=== PATIENT | male | born 1975 | race Caucasian/White ===

== ENCOUNTER 2023-06-25 19:13 | Emergency (ER) | payer OTHER, SELFPAY ==
[2023-06-25] VITALS (40 sets, daily range): BP systolic 179–220; BP diastolic 92–146; PULSE 88–153; TEMP 36.9; O2SAT 80–100; BMI 17.2
--- NOTE | 2023-06-25 19:25 | CT_ITS ---
The [address] [address] Patient Name: DONNA SHARMA MRN: [id number] date: 1975 Sex: M Assigned Patient Location: ER Current Patient Location: Accession/Order Number: [id number] Exam Date: 06/25/2023 20:05 Report Date: 06/25/2023 20:27 At the request of: MAYKEL MARKER Procedure: CT head/brain wo con EXAM: CT scan of the head without contrast. Dose reduction technique used: Automated exposure control and/or adjustment of the mA and/or kV according to patient size and/or use of iterative reconstruction technique. REASON FOR EXAM: new onset seizure COMPARISON: None FINDINGS: No intracranial hemorrhage, mass effect, midline shift, fractures or evidence of acute ischemic infarct. No hydrocephalus. Small region of old infarct or encephalomalacia in the posterior right frontal lobe. Paranasal sinuses and mastoid air cells are clear. Remainder unremarkable. CT/CT head/brain wo con IMPRESSION: No acute intracranial abnormalities. Electronically authenticated by: ISHA ARDON Date: 06/25/2023 20:27
--- NOTE | 2023-06-25 19:30 | XR_ITS ---
The [address] [address] Patient Name: DONNA SHARMA MRN: [id number] date: 1975 Sex: M Assigned Patient Location: ER Current Patient Location: ER Accession/Order Number: [id number] Exam Date: 06/25/2023 20:00 Report Date: 06/25/2023 20:21 At the request of: MAYKEL MARKER Procedure: XR chest 1V Exam: Radiographs: XR chest 1V Reason for exam: seizure Comparison: None XR/XR chest 1V IMPRESSION: Small amount of atelectasis, infiltrate or scarring in the medial right lower lung. Right upper lung calcified granuloma. Remainder of the chest is unremarkable. Electronically authenticated by: ISHA ARDON Date: 06/25/2023 20:21
--- NOTE | 2023-06-25 19:31 | ED_ITS ---
HPI - Seizure General Chief Complaint: Seizure Stated Complaint: seizure Time Seen by Provider: 06/25/23 19:18 Source: patient Mode of arrival: ambulance Limitations: no limitations History of Present Illness HPI Narrative: This 48-year-old male was transferred from [facility] for evaluation after he allegedly had a seizure for approximately 5 seconds in which he was staring. There was He is mostly edentulous and did not bite his tongue. History is somewhat limited because the patient does not have good recall of recent events. He states he was transferred to [facility] earlier today ROM a [facility] emergency Department. He was formerly in the hospital near [facility] where he is from. The patient does not recall what happened but woke up intubated and was taken off of the ventilator. He does not have a history of seizure disorder. He has no focal weakness numbness or tingling. He is alert and oriented. He states that he was sent to [facility] earlier today without his albuterol inhaler or his blood pressure medication. He also supposed to be on potassium for hypokalemia. The patient does not have a history of alcohol use or dependence. He states he is in recovery for heroin addiction and has not used heroin for 14 days. MD complaint: Reports seizure and possible seizure Related Data Home Medications ?Medication ?Instructions ?Recorded ?Confirmed albuterol sulfate 90 mcg/actuation 2 puff inhalation Q4H 06/25/23 06/25/23 aerosol inhaler amlodipine 10 mg tablet 10 mg PO DAILY 06/25/23 06/25/23 hydrochlorothiazide 25 mg tablet 25 mg PO DAILY 06/25/23 06/25/23 metoprolol tartrate 100 mg tablet 100 mg PO DAILY 06/25/23 06/25/23 Allergies Allergy/AdvReac Type Severity Reaction Status Date / Time No Known Drug Allergies Allergy Verified 06/25/23 19:25 Review of Systems ROS Status of ROS 10 or more systems reviewed and unremark able except as noted in history and below Exam Narrative Exam Narrative: Nurses note and vital signs reviewed, Patient is afebrile with a normal respiratory rate, pulse is elevated at 93 and blood pressure is elevated at 218/120, he is not hypoxic a pulse ox of 97 percent on room air General: Thin nontoxic male resting currently on the stretcher, GCS 15, no respiratory distress, patient does not appear to be confused or postictal Skin: Warm, dry, no pallor noted. There is no rash noted. Head: Normocephalic, atraumatic Eye: Normal conjunctiva, no drainage, EOMI. PERRL. Vision is grossly intact, Ears, Nose, Mouth, and Throat: oral mucosa is moist.Patient is partially edentulous, no tongue contusion or laceration noted, no oral bleeding Cardiovascular: Regular Rate and Rhythm S1S2, No murmurs rubs or gallops appreciated, pulses are brisk and equal bilaterally Respiratory: Patient is in no distress, no accessory muscle use, Lungs are coarse with scattered rhonchi, no rales or wheezing appreciated Back: non-tender, no CVA tenderness bilaterally to percussion. GI: Normal bowel sounds, no tenderness to palpation, no masses appreciated. No rebound, guarding, or rigidity noted. Musculoskeletal: The patient has no evidence of calf tenderness, no pitting edema, symmetrical pulses noted bilaterally Neurological: A&O x4, normal speech, [employer] strength is intact bilaterally, upper and lower external he strength and sensation is intact, cognition is intact, no facial droop noted. GCS 15, NIH stroke scale is 0 Psychiatric: Cooperative, friendly Constitutional Vital Signs, click to edit/add: Last Vital Signs Temp 98.4 F 06/25/23 19:14 Pulse 98 H 06/25/23 23:10 Resp 18 06/25/23 22:26 BP 179/102 H 06/25/23 23:00 Pulse Ox 99 06/25/23 23:10 O2 Del Method Room Air 06/25/23 22:26 Course Vital Signs Vital signs: Vital Signs Temperature 98.4 F 06/25/23 19:14 Pulse Rate 93 H 06/25/23 19:14 Respiratory Rate 18 06/25/23 19:14 Blood Pressure 217/105 H 06/25/23 19:14 Pulse Oximetry 97 06/25/23 19:14 Oxygen Delivery Method Room Air 06/25/23 19:14 Temperature 98.4 F 06/25/23 19:14 Pulse Rate 98 H 06/25/23 23:10 Respiratory Rate 18 06/25/23 22:26 Blood Pressure 179/102 H 06/25/23 23:00 Pulse Oximetry 99 06/25/23 23:10 Oxygen Delivery Method Room Air 04/10/24 22:26 MDM - Seizure MDM Narrative Medical decision making narrative: This 48-year-old male with a history of substance abuse who has recently been admitted to the hospital and has had several seizures was transferred from [facility] after he was noted to have an elevated blood pressure and an episode of staring which they were concerned was a seizure. The patient was not incontinent of urine, did not bite his tongue and upon arrival does not appear to be postictal. Patient states that when he was sent to the recovery center today he was not given his medications including his blood pressure medication, albuterol or potassium. He did have markedly elevated blood pressure upon arrival. Patient was awake alert oriented with a normal neuro exam. EKG was ordered and is a sinus rhythm with biatrial enlargement and nonspecific ST changes. An IV was placed and he was medicated with IV fluids, he was given albuterol MDI and 10mg IV hydralazine. Symptoms improved his blood pressure somewhat but not stay in [place] and he was given 10 mg of oral Norvasc.His blood pressure continued to decrease but was still elevated was given an additional 10 mg of IV hydralazine with clinical improvement. CT scan of the brain was negative for acute findings. Cardiac workup was ordered and labs are reviewed. He has an elevated white count of 15.6 with no sign of infection.. He recently was intubated and a chest x-ray was ordered the does not show any sign of acute pneumonia. He has normal troponin. Normal lactic acid. Electrolytes are normal with the exception of potassium which is minimally low at 3.3. CT scan of the brain was reviewed by radiology and is negative for acute findings. Blood pressure has come down into the 170s and 180s. He has remained alert and neurologically stable in the emergency department with no recurrent seizure like activity. He has been on the phone with his friends and family. We did corroborate his story with his sister. Vital signs of been stable. At this time he will be discharged back to the recovery center with prescriptions for Norvasc, albuterol and potassium The [address] [address] XRay Report Signed Patient: DONNA SHARMA MR#: [id number] : 1975 Acct:[id number] Age/Sex: 48 / M ADM Date: 06/25/23 Loc: ER Attending Dr: Ordering Physician: Nataliia Main Date of Service: 06/25/23 Procedure(s): XR chest 1V Accession Number(s): [id number] cc: Nataliia Main; Physician,Non-Staff Fina~ The [place] [id number] Patient Name: DONNA SHARMA MRN: [id number] date: 1975 Sex: M Assigned Patient Location: ER Current Patient Location: ER Accession/Order Number: [id number] Exam Date: 06/25/2023 20:00 Report Date: 06/25/2023 20:21 At the request of: NATALIIA MARKER Procedure: XR chest 1V Exam: Radiographs: XR chest 1V Reason for exam: seizure Comparison: None XR/XR chest 1V IMPRESSION: Small amount of atelectasis, infiltrate or scarring in the medial right lower lung. Right upper lung calcified granuloma. Remainder of the chest is unremarkable. Electronically authenticated by: ISHA ARDON Date: 06/25/2023 20:21 Medical Records Medical records narrative: [place] [address] XRay Report Signed Patient: DONNA SHARMA MR#: [id number] : 1975 Acct:[id number] Age/Sex: 48 / M ADM Date: 06/25/23 Loc: ER Attending Dr: Ordering Physician: Nataliia Main Date of Service: 06/25/23 Procedure(s): XR chest 1V Accession Number(s): [id number] cc: Nataliia Main; Physician,Non-Staff MShaniqua~ The [place] [id number] Patient Name: DONNA SHARMA MRN: [id number] date: 1975 Sex: M Assigned Patient Location: ER Current Patient Location: ER Accession/Order Number: [id number] Exam Date: 06/25/2023 20:00 Report Date: 06/25/2023 20:21 At the request of: NATALIIA MARKER Procedure: XR chest 1V Exam: Radiographs: XR chest 1V Reason for exam: seizure Comparison: None XR/XR chest 1V IMPRESSION: Small amount of atelectasis, infiltrate or scarring in the medial right lower lung. Right upper lung calcified granuloma. Remainder of the chest is unremarkable. The [address] [address] [address] Scan Report Signed Patient: DONNA SHARMA MR#: [id number] : 1975 Acct:[id number] Age/Sex: 48 / M ADM Date: 06/25/23 Loc: ER Attending Dr: Ordering Physician: Nataliia Main Date of Service: 06/25/23 Procedure(s): CT head/brain wo con Accession Number(s): [id number] cc: Physician,Non-Staff M.D.~ The [address] [address] Patient Name: DONNA SHARMA MRN: [id number] date: 1975 Sex: M Assigned Patient Location: ER Current Patient Location: ER Accession/Order Number: [id number] Exam Date: 06/25/2023 20:05 Report Date: 06/25/2023 20:27 At the request of: NATALIIA MAIN Procedure: CT head/brain wo con EXAM: CT scan of the head without contrast. Dose reduction technique used: Automated exposure control and/or adjustment of the mA and/or kV according to patient size and/or use of iterative reconstruction technique. REASON FOR EXAM: new onset seizure COMPARISON: None FINDINGS: No intracranial hemorrhage, mass effect, midline shift, fractures or evidence of acute ischemic infarct. No hydrocephalus. Small region of old infarct or encephalomalacia in the posterior right frontal lobe. Paranasal sinuses and mastoid air cells are clear. Remainder unremarkable. CT/CT head/brain wo con IMPRESSION: No acute intracranial abnormalities. Lab Data Attestation: I reviewed the patient's lab results. Labs: Lab Results 06/25/23 Range/Units 20:00 WBC 15.6 H (4.0-11.0) 10^3/uL RBC 5.24 (4.70-6.10) 10^6/uL Hgb 14.1 (14.0-18.0) g/dL Hct 43.7 (42.0-54.0) % MCV 83.4 (80.0-94.0) fL MCH 26.9 (25.9-34.0) pg MCHC 32.3 (29.9-35.2) g/dL RDW 13.3 (11.0-15.0) % Plt Count 518 H (150-450) 10^3/uL MPV 9.0 L (9.5-13.5) fL Neut % (Auto) 70.1 (43.0-75.0) % Lymph % (Auto) 21.7 (20.5-60.0) % [place] % (Auto) 6.3 (1.7-12.0) % Eos % (Auto) 0.0 L (0.9-7.0) % Baso % (Auto) 0.3 (0.2-2.0) % Neut # (Auto) 10.9 H (1.4-6.5) 10^3/uL Lymph # (Auto) 3.4 (1.2-3.8) 10^3/uL [place] # (Auto) 1.0 H (0.3-0.8) 10^3/uL Eos # (Auto) 0.0 (0.0-0.7) 10^3/uL Baso # (Auto) 0.0 (0.0-0.1) 10^3/uL Abs Immat Gran (auto) 0.25 H (0.00-0.03) 10^3/uL Imm/Tot Granulo (auto) 1.6 H (0.0-0.5) % Sodium 146 H (136-145) mmol/L Potassium 3.3 L (3.5-5.1) mmol/L Chloride 106 (98-107) mmol/L Carbon Dioxide 29.3 (21.0-32.0) mmol/L Anion Gap 14.0 BUN 35.0 H (7.0-18.0) mg/dL Creatinine 0.99 (0.70-1.30) mg/dL Est GFR ( Amer) >60 (>=60) Est GFR (Non-Af Amer) >60 (>=60) BUN/Creatinine Ratio 35.4 Glucose 96 (74-106) mg/dL Lactate 1.2 (0.4-2.0) mmol/L Calcium 10.1 (8.5-10.1) mg/dL Total Bilirubin 0.6 (0.2-1.0) mg/dL AST 36 (15-37) U/L ALT 59 (16-63) U/L Alkaline Phosphatase 100 (46-116) U/L Troponin I High Sens 43.9 (4.0-76.1) pg/mL Total Protein 8.5 H (6.4-8.2) g/dL Albumin 3.6 (3.4-5.0) g/dL Globulin 4.9 g/dL Albumin/Globulin Ratio 0.7 Ethanol Quant <3 mg/dL ECG Data Attestation: I personally reviewed and interpreted this ECG as follows: (Sinus rhythm at 90 beats for minute, biatrial enlargement, T wave inversion noted in leads 2,3 aVF V3, V4, V5, V6, nonspecific ST changes, no acute ST segment elevation) Critical Care Time Critical Care Time Critical Care Time: Yes Total Critical Care Time: 35 Attestation: . Discharge Plan Discharge Stand Alone Forms: Portal Instructions Chief Complaint: Seizure Clinical Impression: Hypertension, uncontrolled, Focal seizure, Hypokalemia Patient Disposition: Hospice - Medical Facility Time of Disposition Decision: 23:23 Discharge Location: [facility] Condition: Good Prescriptions / Home Meds: No Action metoprolol tartrate 100 mg tablet 100 mg PO DAILY amlodipine 10 mg tablet 10 mg PO DAILY hydrochlorothiazide 25 mg tablet 25 mg PO DAILY albuterol sulfate 90 mcg/actuation HFA aerosol inhaler 2 puff INHALATION Q4H Print Language: Citizen Of [place] Instructions: Potassium Content of Foods List (ED), Hypokalemia (ED), Nonepileptic Seizures (ED), Chronic Hypertension (DC), New-Onset Seizure in Adults (ED) Referrals: Physician,Non-Staff, MD [Primary Care Provider] - 1 week
[2023-06-25] MEDS: HYDRALAZINE HCL 20 MG/ML VIAL 10 MG IVP ×2 (19:43→22:22)
[2023-06-25] MEDS: 0.9 % SODIUM CHLORIDE 1,000 ML 1000 ML IV (19:44)
--- NOTE | 2023-06-25 20:07 | PC.NURSE ---
Per report from rehab facility patient was in intake process and had approx. 4-5 second seizure event, per report patient had blank stare. On arrival patient alert and oriented, pivots from squad cot to ER cot without difficulty.
[2023-06-25 20:10] LABS: Basophils Percent Auto 0.3 % (0.2-2.0); Hematocrit 43.7 % (42.0-54.0); Hemoglobin 14.1 g/dL (14.0-18.0); Immature Granulocytes Abs Auto 0.25 10^3/uL (0.00-0.03); Immature Granulocytes Pct Auto 1.6 % (0.0-0.5); Lymphocytes Absolute Auto 3.4 10^3/uL (1.2-3.8); Lymphocytes Percent Auto 21.7 % (20.5-60.0); Mean Corpuscular HGB Conc 32.3 g/dL (29.9-35.2); Mean Corpuscular Hemoglobin 26.9 pg (25.9-34.0); Mean Corpuscular Volume 83.4 fL (80.0-94.0); Monocytes Percent Auto 6.3 % (1.7-12.0); Neutrophils Absolute Auto 10.9 10^3/uL (1.4-6.5); Neutrophils Percent Auto 70.1 % (43.0-75.0); Platelet Count 518 10^3/uL (150-450); Red Blood Count 5.24 10^6/uL (4.70-6.10); Red Cell Distribution Width 13.3 % (11.0-15.0); White Blood Count 15.6 10^3/uL (4.0-11.0)
[2023-06-25] MEDS: ALBUTEROL SULFATE 200 PUFF/6.7 GM INHALER IH (20:28)
--- NOTE | 2023-06-25 20:28 | RESP.RT ---
Rhonchi heard throughout while listening to breath sounds
[2023-06-25 20:29] LABS: Alanine Aminotransferase 59 U/L (16-63); Albumin Globulin Ratio 0.7; Albumin Level 3.6 g/dL (3.4-5.0); Alkaline Phosphatase 100 U/L (46-116); Aspartate Amino Transferase 36 U/L (15-37); BUN Creatinine Ratio 35.4; Bilirubin Total 0.6 mg/dL (0.2-1.0); Calcium 10.1 mg/dL (8.5-10.1); Carbon Dioxide 29.3 mmol/L (21.0-32.0); Chloride 106 mmol/L (98-107); Estimated GFR (African America >60 (>=60); Estimated GFR (Non-African Ame >60 (>=60); Globulin 4.9 g/dL; Glucose 96 mg/dL (74-106); Potassium 3.3 mmol/L (3.5-5.1); Sodium 146 mmol/L (136-145); Total Protein 8.5 g/dL (6.4-8.2)
[2023-06-25 20:30] LABS: Lactate/Lactic Acid 1.2 mmol/L (0.4-2.0)
[2023-06-25 20:31] LABS: Troponin I High Sensitivity 43.9 pg/mL (4.0-76.1)
--- NOTE | 2023-06-25 20:38 | PC.NURSE ---
Patient unsure of recent events; he relays that he was in a hospital in [facility] for several weeks, he lives in [place]. Patient was sent to us from [facility] [place] who was in the intake process when seizure activity happened. Patient came to them from [facility] ER. Patient relays he was in another rehab facility where he was sent to the ER for seizure, patient unsure what the facility name was. Call place to [facility] facility but unable to leave voicemail as mailbox full.
[2023-06-25 20:40] LABS: Ethanol <3 mg/dL
[2023-06-25] MEDS: AMLODIPINE BESYLATE 5 MG TABLET 10 MG PO (21:19)
--- NOTE | 2023-06-25 22:29 | PC.NURSE ---
Patient speaks with sister Swathi at this time. Her phone number is [phone]. She relays that patient had only been at [place] [facility]hab facility less than one day and he did not feel safe at that facility so the hospital placed him at [facility].
--- NOTE | 2023-06-25 22:33 | ECG_ITS ---
The [facility] Test Date: 2023-06-25 Pat Name: DONNA SHARMA Department: Room: - Gender: Male Equipment Associate: : 1975 Requested By: [id number] Order Number: [id number] Reading MD: ABRAHAN RDZ Measurements Intervals [place] Rate: 90 P: 81 NE: 166 QRS: 84 QRSD: 96 T: 254 QT: 360 QTc: 408 Interpretive Statements 1100 Sinus rhythm [address] ST/T wave changes, can't exclude inferolateral ischemia biatrial enlargement 9150 abnormal ECG No previous ECG available for comparison Electronically Signed On 06-26-2023 6:57:40 EDT by ABRAHAN RDZ
--- NOTE | 2023-06-25 23:56 | PC.NURSE ---
Report called to nurse Kourtney at [facility].
== END 2023-06-25 23:59 | disposition home or self-care (01) ==
PROVIDERS: Emergency Provider Emergency Medicine
DX: G40.109 Localization-related (focal) (partial) symptomatic epilepsy and epileptic syndromes with simple partial seizures, not intractable, without status epilepticus (principal); E87.6 Hypokalemia; I10 Essential (primary) hypertension; F11.11 Opioid abuse, in remission; Z79.899 Other long term (current) drug therapy
CPT/HCPCS: 36415; 70450; 71045; 80053; 80320; 83605; 84484; 85025; 93005; 94640; 96374; 96376; 99285